=== PATIENT | female | born 1970 | race American Indian/Alaskan Native ===

== ENCOUNTER 2018-01-11 08:07 | Emergency (ER) | payer OTHER, BC ==
[2018-01-11 08:25] VITALS: BP 134/87
[2018-01-11] MEDS ORDERED: FLEXERIL PO ONE (10:06)
[2018-01-11] MEDS ORDERED: MOTRIN PO ONE (10:06)
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
== END 2018-01-11 11:00 | disposition home or self-care (01) ==
LOC: ED 08:07
DX: S39.012A Strain of muscle, fascia and tendon of lower back, initial encounter (principal); M54.2 Cervicalgia; M25.512 Pain in left shoulder; M25.511 Pain in right shoulder; V49.9XXA Car occupant (driver) (passenger) injured in unspecified traffic accident, initial encounter; E78.00 Pure hypercholesterolemia, unspecified; Y93.89 Activity, other specified; Y99.8 Other external cause status; Y92.410 Unspecified street and highway as the place of occurrence of the external cause
CPT/HCPCS: 99282